=== PATIENT | female | born 1990 | race American Indian/Alaskan Native ===

== ENCOUNTER 2018-02-12 09:46 | Emergency (ER) | payer SELFPAY ==
[2018-02-12 10:03] VITALS: BP 114/64
[2018-02-12] MEDS ORDERED: TORADOL IM ONE (10:47)
--- NOTE | 2018-02-12 10:50 | Emergency Department Report ---
Blank Doc - Documentation Documentation: 27-year-old female with no past medical history previous surgical history of previous presents to the hospital complains of left lower quadrant pain 5 days. Pain is aching and sharp, constant, rated 8/10 intensity, and worse with palpation. She complains of constipation with no significant bowel movement in the last 5 days. Patient took Gas-X pill and a laxative and had a small hard stool with straining last night. She denies nausea, vomiting, fever , or dysuria. She feels like she is having gas-like pain and it is moving around her abdomen when she presses. Patient has significant left lower quadrant pain with mild palpation makes her tearful Urine, , labs ordered Imaging pending result Toradol IM for pain MID Level to follow
[2018-02-12 10:59] LABS: Basophils % (Auto) 0.3 % (0.0-1.8); Eosinophils # (Auto) 0.1 K/mm3 (0.0-0.4); Eosinophils % (Auto) 0.8 % (0.0-4.3); Hematocrit 30.5 % (30.3-42.9); Hemoglobin 9.6 gm/dl (10.1-14.3); Lymphocytes # (Auto) 2.2 K/mm3 (1.2-5.4); Lymphocytes % (Auto) 24.9 % (13.4-35.0); Mean Corpuscular HGB Conc 31 % (30-34); Mean Corpuscular Volume 70 fl (79-97); Monocytes # (Auto) 0.7 K/mm3 (0.0-0.8); Monocytes % (Auto) 7.8 % (0.0-7.3); Platelet Count 462 K/mm3 (140-440); Red Blood Count 4.33 M/mm3 (3.65-5.03); Red Cell Distribution Width 19.6 % (13.2-15.2)
[2018-02-12 11:16] LABS: BUN/Creatinine Ratio 9; Blood Urea Nitrogen 6 mg/dL (7-17); Calcium 8.7 mg/dL (8.4-10.2); Hemolysis Index 0
[2018-02-12 11:23] LABS: Mean Corpuscular Hemoglobin 22 pg (28-32)
--- NOTE | 2018-02-12 11:40 | Emergency Department Report ---
ED Abdominal Pain HPI - General Chief Complaint: Abdominal Pain Stated Complaint: LOWER GAS/PAIN Time Seen by Provider: 02/12/18 10:41 Source: patient Mode of arrival: Ambulatory Limitations: No Limitations - History of Present Illness Initial Comments: 27-year-old female with no past medical history previous surgical history of previous presents to the hospital complains of left lower quadrant pain 5 days. Pain is aching and sharp, constant, rated 8/10 intensity, and worse with palpation. She complains of constipation with no significant bowel movement in the last 5 days. Patient took Gas-X pill and a laxative and had a small hard stool with straining last night. She denies nausea, vomiting, fever , or dysuria. She feels like she is having gas-like pain and it is moving around her abdomen when she presses. Her pain is 8-9 out of 10 aching and sharp. Denies any urinary frequency or urgency. Patient is also complaining of lower back pain on both sides that is achy at 8 out of 10. No medication taken prior to coming to the hospital. Denies any cough or congestion. She does report some nausea. Denies any vaginal discharge or bleeding and her last menstrual period was 02/01/2018. No alleviating or MD Complaint: abdominal pain, other (nausea and back pain) Onset/Timin -: days(s) Location: LLQ (and lower back pain) Radiation: none Migration to: no migration Severity scale (0 -10): 9 Quality: aching, fullness, sharp Consistency: constant Improves With: nothing Worsens With: nothing Context: other (constipation) Associated Symptoms: nausea, constipation. denies: vomiting, diarrhea, fever, chills, dysuria, hematemesis, hematochezia, melena, hematuria, anorexia, syncope Treatments Prior to Arrival: other (Gas-X) - Related Data LMP Date: 02/01/18 Previous Rx's Medication Instructions Recorded Last Taken Type Bisacodyl [Dulcolax] 10 mg PO DAILY PRN 2 Days #2 tab 02/12/18 Unknown Rx Nitrofurantoin [place]/M-Cryst 100 mg PO Q12HR 7 Days #14 capsule 02/12/18 Unknown Rx [Macrobid CAP] Ondansetron [Zofran Odt] 4 mg PO Q6H PRN #20 tab.rapdis 02/12/18 Unknown Rx Allergies Allergy/AdvReac Type Severity Reaction Status Date / Time No Known Allergies Allergy Unverified 02/12/18 10:00 ED Review of Systems ROS: Stated complaint: LOWER GAS/PAIN Other details as noted in HPI Constitutional: denies: chills, fever ENT: throat pain Respiratory: denies: cough, shortness of breath, SOB with exertion, SOB at rest , stridor, wheezing Cardiovascular: denies: chest pain, palpitations, dyspnea on exertion, edema, syncope, paroxysmal nocturnal dyspnea Gastrointestinal: abdominal pain, nausea, constipation. denies: vomiting, diarrhea, hematemesis, melena, hematochezia Genitourinary: denies: urgency, dysuria, frequency, hematuria, discharge, abnormal menses, dyspareunia Musculoskeletal: back pain. denies: joint swelling, arthralgia, myalgia Skin: denies: rash, lesions Neurological: other (no bowel or bladder incontinence). denies: headache, weakness, numbness, paresthesias, confusion, abnormal gait, vertigo ED Past Medical Hx - Past Medical History Previous Medical History?: No - Surgical History Past Surgical History?: No - Family History Family history: no significant - Social History Smoking Status: Never Smoker Substance Use Type: None - Medications Home Medications: Home Medications Medication Instructions Recorded Confirmed Last Taken Type Bisacodyl [Dulcolax] 10 mg PO DAILY PRN 2 Days #2 tab 02/12/18 Unknown Rx Nitrofurantoin [place]/M-Cryst 100 mg PO Q12HR 7 Days #14 capsule 02/12/18 Unknown Rx [Macrobid CAP] Ondansetron [Zofran Odt] 4 mg PO Q6H PRN #20 tab.rapdis 02/12/18 Unknown Rx ED Physical Exam - General Limitations: No Limitations General appearance: alert, in no apparent distress - Head Head exam: Present: atraumatic, normocephalic, normal inspection - Eye Eye exam: Present: normal appearance, PERRL, EOMI Pupils: Present: normal accommodation - ENT ENT exam: Present: normal exam, normal orophraynx, mucous membranes moist - Neck Neck exam: Present: normal inspection, full ROM. Absent: tenderness, lymphadenopathy - Respiratory Respiratory exam: Present: normal lung sounds bilaterally. Absent: respiratory distress, chest wall tenderness - Cardiovascular Cardiovascular Exam: Present: regular rate, normal rhythm, normal heart sounds. Absent: systolic murmur, diastolic murmur - GI/Abdominal GI/Abdominal exam: Present: soft, tenderness (mild tenderness to left lower quadrant with minimal guarding), guarding, normal bowel sounds. Absent: distended, rebound, rigid, organomegaly, mass, hernia - Extremities Exam Extremities exam: Present: normal inspection, full ROM, normal capillary refill , other (No cce. + 2 pulses in all extremities, no neurovascular compromise). Absent: tenderness, pedal edema, joint swelling, calf tenderness - Back Exam Back exam: Present: normal inspection, full ROM, other (ambulates without any difficulties). Absent: tenderness, CVA tenderness (R), CVA tenderness (L), muscle spasm, paraspinal tenderness, vertebral tenderness, rash noted - Neurological Exam Neurological exam: Present: alert, oriented X3, normal gait - Psychiatric Psychiatric exam: Present: normal affect, normal mood - Skin Skin exam: Present: warm, dry, intact, normal color. Absent: rash ED Course Vital Signs 02/12/18 02/12/18 10:00 11:05 Temperature 98.1 F Pulse Rate 92 H Respiratory 18 18 Rate Blood Pressure 114/64 O2 Sat by Pulse 100 Oximetry - Reevaluation(s) Reevaluation #1: 02/12/18 13:03 Patient given Toradol 60 mg IM in emergency room for pain which relieved her pain. She complained of nausea later and she was given Zofran 8 mg ODT. ED Medical Decision Making - Lab Data Result diagrams: 02/12/18 10:50 02/12/18 10:50 Lab Results 02/12/18 02/12/18 02/12/18 Range/Units 10:50 10:50 10:50 WBC 8.7 (4.5-11.0) K/mm3 RBC 4.33 (3.65-5.03) M/mm3 Hgb 9.6 L (10.1-14.3) gm/dl Hct 30.5 (30.3-42.9) % MCV 70 L (79-97) fl MCH 22 L (28-32) pg MCHC 31 (30-34) % RDW 19.6 H (13.2-15.2) % Plt Count 462 H (140-440) K/mm3 Lymph % (Auto) 24.9 (13.4-35.0) % [place] % (Auto) 7.8 H (0.0-7.3) % Eos % (Auto) 0.8 (0.0-4.3) % Baso % (Auto) 0.3 (0.0-1.8) % Lymph # 2.2 (1.2-5.4) K/mm3 [place] # 0.7 (0.0-0.8) K/mm3 Eos # 0.1 (0.0-0.4) K/mm3 Baso # 0.0 (0.0-0.1) K/mm3 Seg Neutrophils % 66.2 (40.0-70.0) % Seg Neutrophils # 5.8 (1.8-7.7) K/mm3 Sodium 137 (137-145) mmol/L Potassium 4.6 (3.6-5.0) mmol/L Chloride 102.9 (98-107) mmol/L Carbon Dioxide 23 (22-30) mmol/L Anion Gap 16 mmol/L BUN 6 L (7-17) mg/dL Creatinine 0.7 (0.7-1.2) mg/dL Estimated GFR > 60 ml/min BUN/Creatinine Ratio 9 % Glucose 95 (65-100) mg/dL Calcium 8.7 (8.4-10.2) mg/dL HCG, Qual Negative (Negative) Urine Color (Yellow) Urine Turbidity (Clear) Urine pH (5.0-7.0) Ur Specific [place] (1.003-1.030) Urine Protein (Negative) mg/dL Urine Glucose (UA) (Negative) mg/dL Urine Ketones (Negative) mg/dL Urine Blood (Negative) Urine Nitrite (Negative) Urine Bilirubin (Negative) Urine Urobilinogen (<2.0) mg/dL Ur Leukocyte Esterase (Negative) Urine WBC (Auto) (0.0-6.0) /HPF Urine RBC (Auto) (0.0-6.0) /HPF U Epithel Cells (Auto) (0-13.0) /HPF Urine Bacteria (Auto) (Negative) /HPF Urine Mucus /HPF 02/12/18 Range/Units 11:59 WBC (4.5-11.0) K/mm3 RBC (3.65-5.03) M/mm3 Hgb (10.1-14.3) gm/dl Hct (30.3-42.9) % MCV (79-97) fl MCH (28-32) pg MCHC (30-34) % RDW (13.2-15.2) % Plt Count (140-440) K/mm3 Lymph % (Auto) (13.4-35.0) % [place] % (Auto) (0.0-7.3) % Eos % (Auto) (0.0-4.3) % Baso % (Auto) (0.0-1.8) % Lymph # (1.2-5.4) K/mm3 [place] # (0.0-0.8) K/mm3 Eos # (0.0-0.4) K/mm3 Baso # (0.0-0.1) K/mm3 Seg Neutrophils % (40.0-70.0) % Seg Neutrophils # (1.8-7.7) K/mm3 Sodium (137-145) mmol/L Potassium (3.6-5.0) mmol/L Chloride (98-107) mmol/L Carbon Dioxide (22-30) mmol/L Anion Gap mmol/L BUN (7-17) mg/dL Creatinine (0.7-1.2) mg/dL Estimated GFR ml/min BUN/Creatinine Ratio % Glucose (65-100) mg/dL Calcium (8.4-10.2) mg/dL HCG, Qual (Negative) Urine Color Yellow (Yellow) Urine Turbidity Slightly-cloudy (Clear) Urine pH 6.0 (5.0-7.0) Ur Specific [place] 1.025 (1.003-1.030) Urine Protein 30 mg/dl (Negative) mg/dL Urine Glucose (UA) Neg (Negative) mg/dL Urine Ketones Neg (Negative) mg/dL Urine Blood Neg (Negative) Urine Nitrite Pos (Negative) Urine Bilirubin Neg (Negative) Urine Urobilinogen < 2.0 (<2.0) mg/dL Ur Leukocyte Esterase Tr (Negative) Urine WBC (Auto) 7.0 H (0.0-6.0) /HPF Urine RBC (Auto) 5.0 (0.0-6.0) /HPF U Epithel Cells (Auto) 8.0 (0-13.0) /HPF Urine Bacteria (Auto) 1+ (Negative) /HPF Urine Mucus 3+ /HPF Urine culture pending - Radiology Data Radiology results: report reviewed X-ray two-view of the abdomen dictated by radiologist and report reviewed by myself. Please see detailed below. Patient: BALDEMAR EDMONDS MR#: [id number] : 1990 Acct:[id number] Age/Sex: 27 / F ADM Date: 02/12/18 Loc: ED Attending Dr: Ordering Physician: JO CORBETT MD Date of Service: 02/12/18 Procedure(s): XR abdomen 2V Accession Number(s): [id number] cc: JO CORBETT MD Fluoro Time In Minutes: FINAL REPORT EXAM: XR ABDOMEN 2V HISTORY: llq pain, infrequent stools TECHNIQUE: AP upright and supine abdominal radiographs. PRIORS: None. FINDINGS: No free air. No bowel obstruction. No organomegaly or masses. No abnormal calcifications. No acute osseous abnormality. IMPRESSION: No acute intra-abdominal abnormality. Transcribed By: MG Dictated By: ALBERT WILD MD Electronically Authenticated By: ALBERT WILD MD Signed Date/Time: 02/12/181224 DD/ 24 TD/TT: 02/12/181224 - Medical Decision Making This is a 27-year-old female here report that she is been constipated for 5 days and she took a laxative last night and she had a small bowel movement. She is not having any urinary symptoms and she is having abdominal pain to her left lower quadrant. Patient is here to be evaluated. Patient was seen and screened by Dr. Gong and/or jeanna. She had CBC and CMP done which was stable. test is negative. Urinalysis reports cloudy urine, positive nitrites, trace leukocyte Estrace and positive white cells and bacteria. Urine culture sent and pending. Patient had abdominal series 2 views and this showed no abnormality. This was dictated by radiologist and report reviewed by myself. Laboratory and diagnostics results was explained to patient. I discussed with her that she has a bladder infection and not constipation there was minimal stool in her colon. She voiced understanding the discharge diagnosis, treatment plan and need to follow- up. Patient was given Toradol 60 mg IM in emergency room for left lower quadrant abdominal pain and back pain which reduced her pain. She was given Zofran for nausea which relieved her nausea. Patient and will be discharged home with prescription for Macrobid to treat acute cystitis without hematuria, Zofran for nausea. Discharged home in stable condition, vital signs stable afebrile nausea resolved, pain resolved. I discussed with her that she needs to increase her fluid intake and states she does not have a primary care to follow at [facility]. Critical care attestation.: If time is entered above; I have spent that time in minutes in the direct care of this critically ill patient, excluding procedure time. ED Disposition Clinical Impression: Acute cystitis without hematuria, LLQ abdominal pain, Nausea alone Constipation Qualifiers: Constipation type: unspecified constipation type Qualified Code(s): K59.00 - Constipation, unspecified Disposition: TO HOME OR SELFCARE Is pt being admited?: No Does the pt Need Aspirin: No Condition: Stable Instructions: Abdominal Pain (ED), Acute Nausea and Vomiting (ED), Constipation (ED), High Fiber Diet (ED), Urinary Tract Infection in Women (ED) Additional Instructions: Please see discharge instruction and high-fiber diet and constipation. Increased fluid intake 2-3 L of water daily. Take antibiotic for bladder infection Take Dulcolax for constipation Follow-up with [facility] as he do not have a primary care physician for primary care physician 3-5 days. If your condition worsens, return to the emergency room. Take Zofran for nausea Referrals: PRIMARY CARE, [Primary Care Provider] - 3-5 Days [facility] [Outside] - 3-5 Days Forms: Work/School Release Form(ED)
[2018-02-12 12:25] LABS: Bacteria,Urine 1+ /HPF (Negative); Bilirubin,Urine NEG (Negative); Blood,Urine NEG (Negative); Color,Urine Yellow (Yellow); Mucus,Urine 3+ /HPF; Urobilinogen,Urine < 2.0 mg/dL (<2.0)
--- NOTE | 2018-02-12 12:26 | XRay Report ---
FINAL REPORT EXAM: XR ABDOMEN 2V HISTORY: llq pain, infrequent stools TECHNIQUE: AP upright and supine abdominal radiographs. PRIORS: None. FINDINGS: No free air. No bowel obstruction. No organomegaly or masses. No abnormal calcifications. No acute osseous abnormality. IMPRESSION: No acute intra-abdominal abnormality.
[2018-02-12] MEDS ORDERED: ZOFRAN ODT PO ONE (12:40)
== END 2018-02-12 13:35 | disposition home or self-care (01) ==
LOC: ED 09:46
DX: N30.01 Acute cystitis with hematuria (principal); K59.00 Constipation, unspecified
CPT/HCPCS: 36415; 74019; 80048; 81001; 84703; 85025; 87086; 96372; 99284; J1885; Q0162

== ENCOUNTER 2018-02-20 09:56 | Emergency (ER) | payer SELFPAY ==
[2018-02-20] MEDS ORDERED: ZOFRAN IV ONE (10:30)
[2018-02-20] MEDS ORDERED: PEPCID IV ONE (10:30)
[2018-02-20] MEDS ORDERED: NACL 0.9% 1000 ML 1,000 ML IV ONE (10:30)
[2018-02-20] MEDS ORDERED: TORADOL IV ONE (10:30)
--- NOTE | 2018-02-20 10:33 | Emergency Department Report ---
Blank Doc - Documentation Documentation: Patient is a 27-year-old female who is presenting with epigastric and central abdominal pain for the past 12 hours. Patient states that it woke her up in the middle of the night. Patient last meal was some hamburger helper. Patient' s had several episodes of nausea and vomiting. Pain is 8 out of 10 in severity. The patient has not had pain to his caliber before. Patient is treated for UTI approximately week ago but states that this pain is much different. Patient denies fevers cough cold congestion or diarrhea. A focused physical exam the patient has epigastric and central abdominal pain no palpation with no rebound or guarding. Patient is in mild to moderate distress secondary to pain. Laboratory studies will be ordered and the patient will have a CT of abdomen and pelvis will be reassessed.
[2018-02-20 11:11] LABS: HCG Qualitative,Urine Negative (Negative)
[2018-02-20 11:12] LABS: Basophils % (Auto) 0.3 % (0.0-1.8); Eosinophils % (Auto) 0.2 % (0.0-4.3); Hematocrit 32.6 % (30.3-42.9); Hemoglobin 10.3 gm/dl (10.1-14.3); Lymphocytes # (Auto) 1.3 K/mm3 (1.2-5.4); Lymphocytes % (Auto) 9.8 % (13.4-35.0); Mean Corpuscular HGB Conc 32 % (30-34); Monocytes # (Auto) 0.5 K/mm3 (0.0-0.8); Monocytes % (Auto) 3.8 % (0.0-7.3); Platelet Count 499 K/mm3 (140-440); Red Blood Count 4.69 M/mm3 (3.65-5.03); Red Cell Distribution Width 19.3 % (13.2-15.2)
[2018-02-20 11:13] LABS: Bilirubin,Urine NEG (Negative); Color,Urine Yellow (Yellow)
[2018-02-20 11:14] LABS: Bacteria,Urine 1+ /HPF (Negative); Blood,Urine NEG (Negative); Mean Corpuscular Hemoglobin 22 pg (28-32); Mean Corpuscular Volume 70 fl (79-97); Mucus,Urine 1+ /HPF; Protein,Urine <15 mg/dL mg/dL (Negative); Urobilinogen,Urine < 2.0 mg/dL (<2.0)
[2018-02-20 11:33] LABS: Albumin 4.5 g/dL (3.9-5); BUN/Creatinine Ratio 11; Blood Urea Nitrogen 8 mg/dL (7-17); Calcium 9.4 mg/dL (8.4-10.2); Hemolysis Index 208; Lipase 18 units/L (13-60)
[2018-02-20 11:43] LABS: Alanine Aminotransferase 6 units/L (7-56)
--- NOTE | 2018-02-20 12:51 | Cat Scan Report ---
FINAL REPORT EXAM: CT ABDOMEN PELVIS W CON HISTORY: abd pain TECHNIQUE: Axial images were performed from the lung bases to the pubic symphysis following IV contrast administration. Multiplanar reformats are performed on the acquisition scanner. Total exam DLP 1696.93 mGy-cm Comparison: KUB 02/12/2018 FINDINGS: Clear lung bases. Normal enhancement and appearance of the liver, spleen, pancreas, gallbladder, bilateral adrenal glands and bilateral kidneys. Normal appendix right lower quadrant. Normally anteverted uterus. Uterus has a heterogeneous appearance and may represent subserosal focal fibroids. Free pelvic fluid. Phlegmonous appearing abnormality in the left lower quadrant. There is soft tissue reticulation of the left colon mesentery peripheral complex enhancement of a focal 3.7 x 3.2 centimeter structure containing focal cystic structures including a 1.5 centimeter cystic lesion and an adjacent 0.8 centimeter cystic lesion. This finding may be related to the colon or the left ovary. The mesocolon adjacent appears to be inflamed but the patient's young age and lack of diverticuli would suggest that it possibly a secondary finding. There is free fluid in the right lower quadrant. No free air. Ill-defined low-density of the left common femoral vein may be related to artifact but DVT cannot be excluded. Multiple small retroperitoneal lymph nodes. Right ovary is not identified. Right hip hardware is present from previous femoral medullary selin. The small bowel loops in the central abdomen appear mildly thick-walled but this may be a secondary finding. IMPRESSION: Complex cystic structure left lower quadrant may be adnexal origin. Alternatively it could be originating from the sigmoid colon. Would favor ovarian origin. Recommend correlation with transvesical and endovaginal pelvic sonographic imaging to assess for TOA or hemorrhagic cyst. Left sigmoid/pericolonic stranding. No diverticulosis. Probable uterine fibroids. Normal appendix. Free pelvic fluid. Ill-defined low density in the left common femoral vein may be artifact but consider lower extremity venous Doppler ultrasound at the same time to assess for DVT.
[2018-02-20] MEDS ORDERED: MORPHINE IV ONE (13:44)
--- NOTE | 2018-02-20 14:19 | Emergency Department Report ---
ED Abdominal Pain HPI - General Chief Complaint: Abdominal Pain Stated Complaint: STOMACH PAIN Time Seen by Provider: 02/20/18 10:27 Source: patient Mode of arrival: Wheelchair Limitations: No Limitations - History of Present Illness Initial Comments: This is a 27-year-old female nontoxic, well nourished in appearance, no acute signs of distress presents to the ED with c/o of nausea and vomiting and epigastric abdominal pain1 day. 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 Patient describes vomiting as food content and yellow gastric acid. Patient describes abdominal pain as cramping and aching with level of 3/10 diffuse. Patient denies chest pain, short of breath, fever, chills, headache, stiff neck, numbness or tingling. Patient denies any diarrhea or constipation. Patient denies any vaginal bleeding or discharge. Patient denies any recent travels. Patient denies any allergies or significant PMH. MD Complaint: abdominal pain -: days(s) (1) Location: diffuse Radiation: none Migration to: no migration Severity: mild Severity scale (0 -10): 8 Quality: cramping Consistency: constant Improves With: nothing Worsens With: nothing Associated Symptoms: nausea, vomiting. denies: diarrhea, fever, chills, constipation, dysuria, hematemesis, hematochezia, melena, hematuria, anorexia, syncope - Related Data Previous Rx's Medication Instructions Recorded Last Taken Type Bisacodyl [Dulcolax] 10 mg PO DAILY PRN 2 Days #2 tab 02/12/18 Unknown Rx Nitrofurantoin Patrick/M-Cryst 100 mg PO Q12HR 7 Days #14 capsule 02/12/18 Unknown Rx [Macrobid CAP] Ondansetron [Zofran Odt] 4 mg PO Q6H PRN #20 tab.rapdis 02/12/18 Unknown Rx Ibuprofen [Motrin] 600 mg PO Q8H PRN #30 tablet 02/20/18 Unknown Rx Ondansetron [Zofran Odt] 4 mg PO Q8HR PRN #20 tab.rapdis 02/20/18 Unknown Rx Allergies Allergy/AdvReac Type Severity Reaction Status Date / Time No Known Allergies Allergy Unverified 02/12/18 10:00 ED Review of Systems ROS: Stated complaint: STOMACH PAIN Other details as noted in HPI Constitutional: denies: chills, fever Eyes: denies: eye pain, eye discharge, vision change ENT: denies: ear pain, throat pain Respiratory: denies: cough, shortness of breath, wheezing Cardiovascular: denies: chest pain, palpitations Endocrine: no symptoms reported Gastrointestinal: abdominal pain, nausea, vomiting. denies: diarrhea Genitourinary: denies: urgency, dysuria, discharge Musculoskeletal: denies: back pain, joint swelling, arthralgia Skin: denies: rash, lesions Neurological: denies: headache, weakness, paresthesias Psychiatric: denies: anxiety, depression Hematological/Lymphatic: denies: easy bleeding, easy bruising ED Past Medical Hx - Past Medical History Previous Medical History?: No - Surgical History Past Surgical History?: Yes Additional Surgical History: C section, right leg "metal selni". Left hand. - Social History Smoking Status: Current Every Day Smoker Substance Use Type: Marijuana - Medications Home Medications: Home Medications Medication Instructions Recorded Confirmed Last Taken Type Bisacodyl [Dulcolax] 10 mg PO DAILY PRN 2 Days #2 tab 02/12/18 Unknown Rx Nitrofurantoin Patrick/M-Cryst 100 mg PO Q12HR 7 Days #14 capsule 02/12/18 Unknown Rx [Macrobid CAP] Ondansetron [Zofran Odt] 4 mg PO Q6H PRN #20 tab.rapdis 02/12/18 Unknown Rx Ibuprofen [Motrin] 600 mg PO Q8H PRN #30 tablet 02/20/18 Unknown Rx Ondansetron [Zofran Odt] 4 mg PO Q8HR PRN #20 tab.rapdis 02/20/18 Unknown Rx ED Physical Exam - General Limitations: No Limitations General appearance: alert, in no apparent distress - Head Head exam: Present: atraumatic, normocephalic - Eye Eye exam: Present: normal appearance Pupils: Present: normal accommodation - ENT ENT exam: Present: normal exam, mucous membranes moist - Neck Neck exam: Present: normal inspection, full ROM. Absent: tenderness, meningismus, lymphadenopathy - Respiratory Respiratory exam: Present: normal lung sounds bilaterally. Absent: respiratory distress, wheezes, rales, rhonchi, stridor, chest wall tenderness, accessory muscle use, decreased breath sounds, prolonged expiratory - Cardiovascular Cardiovascular Exam: Present: regular rate, normal rhythm, normal heart sounds. Absent: irregular rhythm, systolic murmur, diastolic murmur, rubs, gallop - GI/Abdominal GI/Abdominal exam: Present: soft, tenderness (diffuse), normal bowel sounds. Absent: distended, guarding, rebound, rigid, diminished bowel sounds - Rectal Rectal exam: Present: deferred - Extremities Exam Extremities exam: Present: normal inspection, full ROM, normal capillary refill. Absent: tenderness, joint swelling, calf tenderness - Back Exam Back exam: Present: normal inspection, full ROM. Absent: tenderness, CVA tenderness (R), CVA tenderness (L), muscle spasm, paraspinal tenderness, vertebral tenderness, rash noted - Neurological Exam Neurological exam: Present: alert, oriented X3, normal gait - Psychiatric Psychiatric exam: Present: normal affect, normal mood - Skin Skin exam: Present: warm, dry, intact, normal color. Absent: rash ED Course Vital Signs 02/20/18 02/20/18 10:15 16:02 Temperature 98.6 F 97.4 F L Pulse Rate 103 H 90 Respiratory 18 16 Rate Blood Pressure 126/77 Blood Pressure 112/62 [Left] O2 Sat by Pulse 98 100 Oximetry - Reevaluation(s) Reevaluation #1: 02/20/18 14:22 Patient is speaking in full sentences with no signs of distress noted. - Consultations Consultation #1: 02/20/18 14:22 Patient has been consulted with Rehana Vasques about patient history, physical exam, and labs/CT report and examined and screened patient and agrees to ED plan of care. ED Medical Decision Making - Lab Data Result diagrams: 02/20/18 10:53 02/20/18 12:15 - Medical Decision Making This is a 27-year-old female that presents with abdominal pain and nausea vomiting. Patient is stable and was examined by me and Dr. Hazel. There is slight abdominal tenderness. Negative signs of symptoms of appendicitis. Labs obtained. UA obtained. CT with contrast of abdomen obtained and dictated by the radiologist. Patient is notified of the report with no questions noted by the patient. US pelvic/transvaginal obtaiend. When asked patient if she had any pain in the legs, patient stated that she had pain on her right leg yesterday but has subsided. For that reason and CT results recommended Doppler studies has been obtained with no SVT/DVT noted and pending radiologist report. Vital signs are stable prior to discharge. Patient received fluids and treatment in the ED which patient stated symptoms has resovled and subsided. A by mouth challenge has been obtained and patient tolerated well with no nausea vomiting. Patient was notified of strict precatuions of appendictis symptoms and to return to the ED if symptoms occurs as soon as possible. Patient was instructed not to operate any machinery after discharge due to drowsiness of [place] which patient stated a family member will drive patient home. Patient was also instructed to Follow-up with a primary care doctor in 3-5 days or if symptoms worsen and continue return to emergency room as soon as possible. At time of discharge, the patient does not seem toxic or ill in appearance. No acute signs of distress noted. Patient agrees to discharge treatment plan of care. No further questions noted by the patient. Critical care attestation.: If time is entered above; I have spent that time in minutes in the direct care of this critically ill patient, excluding procedure time. 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 Prescriptions: Ibuprofen [Motrin] 600 mg PO Q8H PRN #30 tablet PRN Reason: Pain Ondansetron [Zofran Odt] 4 mg PO Q8HR PRN #20 tab.rapdis PRN Reason: Nausea Referrals: PRIMARY CARE, [Primary Care Provider] - 3-5 Days ADELITA GONZALEZ MD [Staff Physician] - 3-5 Days [facility] [Provider Group] - 3-5 Days LEOPOLDO BREWER MD [Staff Physician] - 3-5 Days [facility] [place] [Outside] - 3-5 Days Forms: Work/School Release Form(ED)
[2018-02-20 16:04] VITALS: BP 112/62
--- NOTE | 2018-02-20 16:15 | Ultrasound Report ---
FINAL REPORT EXAM: US PELVIC COMPLETE HISTORY: pelvic pain COMPARISON: CT of the abdomen pelvis performed on 02/20/2018. TECHNIQUE: Transabdominal imaging of the pelvis was performed. FINDINGS: The uterus measures 11.2 x 4 x 4.3 centimeters and is normal in echogenicity. There is normal echogenicity of the uterine myometrium. The endometrium measures 4.2 millimeters in thickness and is normal in morphology. The right ovary is not visualized. Within the left adnexa, there is a heterogeneous 6 x 3.5 x 3.6 centimeter soft tissue lesion with internal flow on color Doppler imaging. There is some free fluid within the left adnexa. IMPRESSION: Heterogeneous 6 x 3.5 x 3.6 centimeter soft tissue lesion within the left adnexa. Differential diagnosis includes atypical neoplasm,, endometrioma, hemorrhagic cyst, and less likely tubo-ovarian abscess. Recommend clinical correlation. Recommend further evaluation with MRI without and with contrast.
--- NOTE | 2018-02-20 16:16 | Ultrasound Report ---
FINAL REPORT EXAM: US TRANSVAGINAL HISTORY: pelvic pain COMPARISON: CT of the abdomen and pelvis performed 02/20/2018 TECHNIQUE: Transvaginal imaging of the pelvis was performed. FINDINGS: The uterus measures 11.2 x 4 x 4.3 centimeters and is normal in echogenicity. There is normal echogenicity of the uterine myometrium. The endometrium measures 4.2 millimeters in thickness and is normal in morphology. The right ovary is not visualized. Within the left adnexa, there is a heterogeneous 6 x 3.5 x 3.6 centimeter soft tissue lesion with internal flow on color Doppler imaging. There is some free fluid within the left adnexa. IMPRESSION: Heterogeneous 6 x 3.5 x 3.6 centimeter soft tissue lesion within the left adnexa. Differential diagnosis includes atypical neoplasm,, endometrioma, hemorrhagic cyst, and less likely tubo-ovarian abscess. Recommend clinical correlation. Recommend further evaluation with MRI without and with contrast.
== END 2018-02-20 16:45 | disposition home or self-care (01) ==
LOC: ED 09:56
DX: R10.13 Epigastric pain (principal); R11.2 Nausea with vomiting, unspecified; F12.10 Cannabis abuse, uncomplicated; F17.200 Nicotine dependence, unspecified, uncomplicated
CPT/HCPCS: 36415; 74177; 76830; 76856; 80053; 81001; 81025; 83690; 84132; 85025; 93970; 96361; 96374; 96375; 99284; J1885; J2270; J2405; J7030; Q9967